=== PATIENT | female | born 1945 | race Caucasian/White ===

== ENCOUNTER 2022-03-04 17:57 | Emergency (ER) | payer MEDICARE ==
[~2022-03-04] VITALS: Ht 157.5 cm; Wt 80.5 kg
[2022-03-04] MEDS ORDERED: NS IV 1000 ML 1,000 ML IV STA (18:07)
[2022-03-04 18:17] LABS: BASOPHILS % (AUTO) 1 % (0-10); EOSINOPHILS % (AUTO) 0 % (0-10); HEMATOCRIT 36 % (35-52); HEMOGLOBIN 12.8 g/dL (11.5-16.0); LYMPHOCYTES # (AUTO) 1.8 10^3/uL (1.0-4.0); LYMPHOCYTES % (AUTO) 54 % (12-44); MEAN CORPUSCULAR HEMOGLOBIN 31 pg (25-34); MEAN CORPUSCULAR HGB CONC 36 g/dL (32-36); MEAN CORPUSCULAR VOLUME 87 fL (80-99); MEAN PLATELET VOLUME 9.4 fL (9.0-12.2); MONOCYTES # (AUTO) 0.4 10^3/uL (0.0-1.0); MONOCYTES % (AUTO) 13 % (0-12); NEUTROPHILS # (AUTO) 1.1 10^3/uL (1.8-7.8); NEUTROPHILS % (AUTO) 32 % (42-75); PLATELET COUNT 200 10^3/uL (130-400); WHITE BLOOD COUNT 3.3 10^3/uL (4.3-11.0)
--- NOTE | 2022-03-04 18:17 | ED GI ---
General Chief Complaint: Abdominal/GI Problems Stated Complaint: ABD PAIN History of Present Illness Date Seen by Provider: Mar 04, 2022 Time Seen by Provider: 18:11 Initial Comments 76-year-old female presents with decreased appetite, abdominal discomfort but not really pain. Patient reports that she just recently got over COVID. That over the last for 5 days since she is gotten over COVID she not had any appetite. That she just does not want to eat nothing tastes good. Patient states that while she was having COVID she was having diarrhea but has not had any diarrhea in about 3 to 4 days. She reports no bowel movement since then but also reports that she basically has not eaten anything straight some broth but just did not like it. Patient denies any shortness of breath, fever, chills. She does have some generalized malaise. Allergies and Home Medications Allergies Coded Allergies: No Known Drug Allergies (Unverified , 03/04/22) Patient Home Medication List Home Medication List Reviewed: Yes Review of Systems Review of Systems Constitutional: No chills, No fever EENTM: No Symptoms Reported Respiratory: No Symptoms Reported Cardiovascular: No Symptoms Reported Gastrointestinal: See HPI, Abdominal Pain, Nausea, Poor Appetite Genitourinary: No Symptoms Reported Musculoskeletal: no symptoms reported Skin: no symptoms reported Psychiatric/Neurological: No Symptoms Reported Endocrine: No Symptoms Reported Hematologic/Lymphatic: No Symptoms Reported Physical Exam Vital Signs Vital Signs - First Documented 03/04/22 18:00 Temp 36.4 Pulse 87 Resp 18 B/P (MAP) 168/81 (110) Pulse Ox 95 O2 Delivery Room Air Capillary Refill : Height/Weight/BMI Height: '" Weight: lbs. oz. kg; BMI Method: General Appearance: WD/WN, no apparent distress Respiratory: lungs clear, normal breath sounds Cardiovascular: normal peripheral pulses, tachycardia Gastrointestinal: non tender, soft Extremities: normal range of motion, non-tender Neurologic/Psychiatric: alert, normal mood/affect, oriented x 3 Skin: normal color, warm/dry Progress/Results/Core Measures Results/Orders Lab Results Laboratory Tests Test 03/04/22 18:12 03/04/22 19:12 Range/Units White Blood Count 3.3 L 4.3-11.0 10^3/uL Red Blood Count 4.09 3.80-5.11 10^6/uL Hemoglobin 12.8 11.5-16.0 g/dL Hematocrit 36 35-52 % Mean Corpuscular Volume 87 80-99 fL Mean Corpuscular Hemoglobin 31 25-34 pg Mean Corpuscular Hemoglobin Concent 36 32-36 g/dL Red Cell Distribution Width 13.6 10.0-14.5 % Platelet Count 200 130-400 10^3/uL Mean Platelet Volume 9.4 9.0-12.2 fL Immature Granulocyte % (Auto) 0 % Neutrophils (%) (Auto) 32 L 42-75 % Lymphocytes (%) (Auto) 54 H 12-44 % Monocytes (%) (Auto) 13 H 0-12 % Eosinophils (%) (Auto) 0 0-10 % Basophils (%) (Auto) 1 0-10 % Neutrophils # (Auto) 1.1 L 1.8-7.8 10^3/uL Lymphocytes # (Auto) 1.8 1.0-4.0 10^3/uL Monocytes # (Auto) 0.4 0.0-1.0 10^3/uL Eosinophils # (Auto) 0.0 0.0-0.3 10^3/uL Basophils # (Auto) 0.0 0.0-0.1 10^3/uL Immature Granulocyte # (Auto) 0.0 0.0-0.1 10^3/uL Neutrophils % (Manual) 29 % Lymphocytes % (Manual) 39 % Monocytes % (Manual) 12 % Eosinophils % (Manual) 0 % Basophils % (Manual) 0 % Band Neutrophils 1 % Atypical Lymphocytes 19 % Platelet Estimate NORMAL Blood Morphology Comment NORMAL Sodium Level 125 *L 135-145 MMOL/L Potassium Level 3.8 3.6-5.0 MMOL/L Chloride Level 90 L 98-107 MMOL/L Carbon Dioxide Level 24 21-32 MMOL/L Anion Gap 11 5-14 MMOL/L Blood Urea Nitrogen 9 7-18 MG/DL Creatinine 0.85 0.60-1.30 MG/DL Estimat Glomerular Filtration Rate 72 BUN/Creatinine Ratio 11 Glucose Level 118 H 70-105 MG/DL Calcium Level 9.0 8.5-10.1 MG/DL Corrected Calcium 8.9 8.5-10.1 MG/DL Magnesium Level 1.6 1.6-2.4 MG/DL Total Bilirubin 0.4 0.1-1.0 MG/DL Aspartate Amino Transf (AST/SGOT) 34 5-34 U/L Alanine Aminotransferase (ALT/SGPT) 37 0-55 U/L Alkaline Phosphatase 82 40-136 U/L C-Reactive Protein 0.47 <0.50 MG/DL Total Protein 7.0 6.4-8.2 GM/DL Albumin 4.1 3.2-4.5 GM/DL Lipase 44 8-78 U/L Urine Color PALE YELLOW Urine Clarity CLEAR Urine pH 7.0 5-9 Urine Specific [place] <=1.005 1.016-1.022 Urine Protein NEGATIVE NEGATIVE Urine Glucose (UA) NEGATIVE NEGATIVE Urine Ketones NEGATIVE NEGATIVE Urine Nitrite NEGATIVE NEGATIVE Urine Bilirubin NEGATIVE NEGATIVE Urine Urobilinogen 0.2 < = 1.0 MG/DL Urine Leukocyte Esterase NEGATIVE NEGATIVE Urine RBC (Auto) TRACE-I H NEGATIVE Urine RBC 0-2 /HPF Urine WBC RARE /HPF Urine Squamous Epithelial Cells RARE /HPF Urine Crystals NONE /LPF Urine Bacteria NEGATIVE /HPF Urine Casts NONE /LPF Urine Mucus NEGATIVE /LPF Urine Culture Indicated NO My Orders Orders - GUO,ELICEO L DO Cbc With Automated Diff (03/04/22 18:07) Comprehensive Metabolic Panel (03/04/22 18:07) Lipase (03/04/22 18:07) Magnesium (03/04/22 18:07) Ua Culture If Indicated (03/04/22 18:07) Crp Fs (03/04/22 18:07) Ns Iv 1000 Ml (Sodium Chloride 0.9%) (03/04/22 18:07) Acute Abd Series (03/04/22 18:07) Manual Differential (03/04/22 18:12) Vital Signs/I&O 03/04/22 03/04/22 18:00 19:05 Temp 36.4 Pulse 87 76 Resp 18 17 B/P (MAP) 168/81 (110) 125/72 Pulse Ox 95 97 O2 Delivery Room Air Room Air Progress Progress Note : Progress Note Patient with low sodium however it does not appear to be acute. Patient is normal with mentation, neurologic exam and gait. Patient was given 1 L normal saline and feels significantly better. She reports that while she has not felt that she is mainly just drink water. I recommended that she add some electrolytes or juice to her intake and cut back on the water which is likely the reason that her sodium is lower. Patient is to call Dr. BRANDT's office tomorrow for a follow-up appointment either tomorrow or the next day to repeat her sodium. Patient stable and discharged home. Diagnostic Imaging Diagonstic Imaging: Xray Plain Films/CT/US/NM/MRI: abdomen Comments Date of Exam:03/04/22 ACUTE ABD SERIES Indication: Pain. Findings: Lungs clear. No failure, effusion or pneumothorax. Bowel gas pattern unremarkable. There is stool in the colon and perhaps mild rectal constipation but no sahley obstruction. There Is rightward convexity thoracolumbar rotoscoliotic curvature. Impression: Equivocal findings for rectal constipation but no overt obstruction, no acute cardiopulmonary abnormality. Reviewed: Reviewed by Me, Reviewed/Discussed Departure Impression Primary Impression: Hyponatremia Additional Impression: Post-COVID syndrome Disposition: 01 HOME, SELF-CARE Condition: Stable Departure-Patient Inst. Referrals: YUSUF CANTOR MD (PCP/Family) Primary Care Physician Patient Instructions: Recovery After COVID-19, Hyponatremia Add. Discharge Instructions: Please add Gatorade, juices or other electrolyte containing drinks to your diet and decrease amount of free water you are drinking Please call Dr. BRANDT's office in the morning to arrange for a follow-up either tomorrow or the next day to recheck your sodium levels. Return to the ER as needed All discharge instructions reviewed with patient and/or family. Voiced understanding. ELICEO GUO DO Mar 04, 2022 18:17
[2022-03-04 18:34] LABS: ATYPICAL LYMPHOCYTES 19 %; BAND NEUTROPHILS 1 %; BASOPHILS % (MANUAL) 0 %; EOSINOPHILS % (MANUAL) 0 %; LYMPHOCYTES % (MANUAL) 39 %; MONOCYTES % (MANUAL) 12 %; NEUTROPHILS % (MANUAL) 29 %; PLATELET ESTIMATE NORMAL; RBC MORPH NORMAL
--- NOTE | 2022-03-04 18:34 | Diagnostic Imaging Report ---
Indication: Pain. Findings: Lungs clear. No failure, effusion or pneumothorax. Bowel gas pattern unremarkable. There is stool in the colon and perhaps mild rectal constipation but no ashley obstruction. There Is rightward convexity thoracolumbar rotoscoliotic curvature. Impression: Equivocal findings for rectal constipation but no overt obstruction, no acute cardiopulmonary abnormality. Dictated by: Dictated on workstation # [id number]
[2022-03-04 18:39] LABS: BILIRUBIN,TOTAL 0.4 MG/DL (0.1-1.0); CREATININE SERUM 0.85 MG/DL (0.60-1.30); MAGNESIUM 1.6 MG/DL (1.6-2.4); POTASSIUM 3.8 MMOL/L (3.6-5.0)
[2022-03-04 18:40] LABS: ALBUMIN 4.1 GM/DL (3.2-4.5)
[2022-03-04 19:16] LABS: BILIRUBIN,URINE NEGATIVE (NEGATIVE); CLARITY,URINE CLEAR; GLUCOSE, URINE (UA) NEGATIVE (NEGATIVE); KETONES,URINE NEGATIVE (NEGATIVE); LEUKOCYTE ESTERASE ,URINE NEGATIVE (NEGATIVE); NITRITE,URINE NEGATIVE (NEGATIVE); PROTEIN,URINE NEGATIVE (NEGATIVE)
[2022-03-04 19:19] LABS: COLOR,URINE PALE YELLOW
[2022-03-04 19:20] LABS: BACTERIA,URINE NEGATIVE /HPF; RBC,URINE 0-2 /HPF; SQUAMOUS EPITHELIAL CELL,UR RARE /HPF; WBC,URINE RARE /HPF
[2022-03-04 19:42] VITALS: BP 125/72
== END 2022-03-04 19:42 | disposition home or self-care (01) ==
LOC: EDUNIT# 17:57 → ER FS 17:59
DX: U09.9 Post COVID-19 condition, unspecified (principal); E87.1 Hypo-osmolality and hyponatremia; Z28.310 Unvaccinated for COVID-19
CPT/HCPCS: 36415; 74022; 80053; 81000; 83690; 83735; 85007; 85027; 86141

== ENCOUNTER → 2022-09-21 | Outpatient (CLI) | payer MEDICARE ==
--- NOTE | 2022-09-21 14:41 | Diagnostic Imaging Report ---
SCOLIOSIS STANDING 2-3 VIEW INDICATION: Scoliosis COMPARISON: None available. TECHNIQUE: Standing AP view of the thoracolumbar spine. FINDINGS: Rotatory dextroscoliosis of the lumbar spine with apex at L2-L3 has a Morris angle of 45 degrees. No scoliotic curvature within the thoracic spine. No vertebral body segmentation or formation anomaly. 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 Mild degenerative changes SI joints. IMPRESSION: Rotatory dextroscoliosis of the lumbar spine. Dictated by: Dictated on workstation # [id number]
== END ==
LOC: RAD FS 09:20
PROVIDERS: ATTEND Nurse Practitioner Family
DX: M41.86 Other forms of scoliosis, lumbar region (principal)
CPT/HCPCS: 72082